=== PATIENT | female | born 1955 | race Caucasian/White ===

== ENCOUNTER 2023-11-19 08:57 | Inpatient (IN) | payer MEDICARE, OTHER ==
[~2023-11-19] VITALS: Ht 160 cm; Wt 68.5 kg
[2023-11-19] MEDS ORDERED: VANCOMYCIN 1 GM VIAL ONE (09:49)
[2023-11-19] MEDS ORDERED: LIDOCAINE 2%-EPI 1:100,000 30 ML VIAL ONE (10:38)
[2023-11-19] MEDS ORDERED: dexaMETHasone SOD PHOSPHATE 2 ML ONE (10:39)
[2023-11-19] MEDS ORDERED: MIDAZOLAM HCL 2 MG/2ML VIAL ONE (10:49)
[2023-11-19] MEDS ORDERED: FENTANYL PF 100MCG/2ML AMPUL ONE (10:49)
[2023-11-19] MEDS ORDERED: OXYMETAZOLINE HCL NASAL SPRAY 30 ML BOTTLE NS ONE (10:51)
[2023-11-19] MEDS ORDERED: GLYCOPYRROLATE 0.2 MG/ML VIAL ONE (10:51)
[2023-11-19 14:00] VITALS: BP_SYST 118; BP_SYST 139; BP_DIAS 55; BP_DIAS 72; TEMP 97.6; TEMP 98.1; O2SAT 94
[2023-11-19] MEDS ORDERED: ONDANSETRON HCL/PF 4 MG/2 ML VIAL IVP PRN ×2 (14:00→16:30)
[2023-11-19 14:15] VITALS: BP 120/54; TEMP 98.2; O2SAT 95
[2023-11-19] MEDS ORDERED: ROSU5TAB PO (14:23)
[2023-11-19] MEDS ORDERED: ZOLP5TAB2 PO (14:23)
[2023-11-19] MEDS ORDERED: LOSA25TA27 PO (14:23)
[2023-11-19] MEDS ORDERED: AMLO2.5T2 PO (14:23)
[2023-11-19] MEDS: IV NS 0.9% 1,000 ML IV PRN (14:26)
[2023-11-19 14:30] VITALS: BP 124/65; TEMP 97.4; O2SAT 96
[2023-11-19 16:00] VITALS: BP 121/67; TEMP 98.2; O2SAT 92
[2023-11-19] MEDS ORDERED: IV NS 0.9% 1,000 ML IV PRN (16:30)
[2023-11-19] MEDS ORDERED: MAG HYDROX/AL HYDROX/SIMETH 30 ML UDC PO PRN (16:30)
[2023-11-19 20:00] VITALS: BP 126/69; TEMP 97.7; O2SAT 96
[2023-11-19 20:30] VITALS: O2SAT 99
[2023-11-19] MEDS: ATORVASTATIN 10 MG TABLET PO SCH (21:45)
[2023-11-19] MEDS: VANCOMYCIN 1 GM in IV D5W 250ml IV SCH (21:45)
[2023-11-19] MEDS: ACETAMINOPHEN 325 MG TABLET PO PRN (21:45)
[2023-11-19] MEDS: ZOLPIDEM TARTRATE 5 MG TABLET PO SCH (22:33)
[2023-11-20 04:06] VITALS: O2SAT 99
[2023-11-20 07:08] LABS: HEMATOCRIT 37 % (33-45); HEMOGLOBIN 12.3 g/dL (11.5-14.8); LYMPHOCYTES # (AUTO) 1.5 K/uL (0.8-4.8); LYMPHOCYTES % (AUTO) 11.6 % (20.0-44.0); MEAN CORPUSCULAR HEMOGLOBIN 31 PG (26.0-33.0); MEAN CORPUSCULAR HGB CONC 34 g/dl (31.0-36.0); MEAN CORPUSCULAR VOLUME 92 fL (82-100); MONOCYTES # (AUTO) 0.7 K/uL (0.1-1.30); MONOCYTES % (AUTO) 5.4 % (2.0-12.0); NEUTROPHILS # (AUTO) 10.9 K/uL (1.8-8.9); PLATELET COUNT (AUTO) 272 K/uL (150-450); RED BLOOD CELL COUNT(AUTO) 3.99 MIL/uL (4.0-5.2); RED CELL DISTRIBUTION WIDTH 13.7 % (11.5-15.0); WHITE BLOOD COUNT (AUTO) 13.1 K/uL (4.3-11.0)
[2023-11-20 07:30] VITALS: BP 111/61; TEMP 97.9; O2SAT 96
[2023-11-20 07:54] LABS: CALCIUM, SERUM 9.1 mg/dL (8.5-10.1); CREATININE 0.8 mg/dL (0.6-1.3); MAGNESIUM 2.1 mg/dL (1.8-2.4); PHOSPHORUS 3.5 mg/dL (2.5-4.9); POTASSIUM 4.1 mmol/L (3.5-5.1)
[2023-11-20 08:56] VITALS: O2SAT 99
[2023-11-20 09:52] VITALS: BP 119/62
[2023-11-20] MEDS: AMLODIPINE BESYLATE 2.5 MG TABLET PO SCH (09:52)
[2023-11-20] MEDS: LOSARTAN POTASSIUM 25 MG TABLET PO SCH (09:52)
== END 2023-11-20 16:26 | disposition home or self-care (01) | DRG 517 ==
LOC: DS 08:57 → MED 13:31
PROVIDERS: ADMIT Nurse Practitioner Acute Care; ATTEND Nurse Practitioner Acute Care
PROC: 0NSR04Z Reposition Maxilla with Internal Fixation Device, Open Approach (ICD-10-PCS; principal; 2023-11-19)
PROC: 0NUR07Z Supplement Maxilla with Autologous Tissue Substitute, Open Approach (ICD-10-PCS; 2023-11-19)
PROC: 0NSV04Z Reposition Left Mandible with Internal Fixation Device, Open Approach (ICD-10-PCS; 2023-11-19)
PROC: 0NBV0ZX Excision of Left Mandible, Open Approach, Diagnostic (ICD-10-PCS; 2023-11-19)
DX: M84.48XK Pathological fracture, other site, subsequent encounter for fracture with nonunion (principal); E78.5 Hyperlipidemia, unspecified; I10 Essential (primary) hypertension; Z79.899 Other long term (current) drug therapy; J32.9 Chronic sinusitis, unspecified; M85.60 Other cyst of bone, unspecified site; D72.829 Elevated white blood cell count, unspecified; D16.4 Benign neoplasm of bones of skull and face
CPT/HCPCS: 36415; 80048-TC; 83735-TC; 84100-TC; 85025-TC; 94760-TC; 94799-TC; A4223; C1713; G0378; J0330; J0690; J1100; J1885; J2250; J2405; J2704; J2765; J3010; J3370; J3490; J7030; J7060